=== PATIENT | female | born 1995 | race Caucasian/White ===

== ENCOUNTER → 2020-03-02 14:38 | Outpatient (CLI) | payer OTHER, MEDICAID, SELFPAY ==
[2020-03-02 15:18] LABS: Add Manual Diff / Slide Review NO; Basophils Absolute Auto 100 /uL (0-100); Basophils Percent Auto 0.8 % (0-2); Eosinophils Absolute Auto 0 /uL (0-450); Eosinophils Percent Auto 0.4 % (2-4); Hematocrit 42.7 % (36-46); Hemoglobin 14.3 g/dL (12.0-16.0); Lymphocytes Absolute Auto 2700 /uL (1100-4500); Lymphocytes Percent Auto 36.5 % (25-40); Mean Corpuscular HGB Conc 33.6 % (30-36); Mean Corpuscular Volume 92.1 fL (80-100); Monocytes Absolute Auto 700 /uL (0-900); Monocytes Percent Auto 9.8 % (3-14); Neutrophils Absolute Auto 3900 /uL (1500-7000); Neutrophils Percent Auto 52.5 % (50-75); Platelet Count 298 X10^3/uL (150-400); Red Blood Cell Count 4.63 X10^6/uL (4.0-5.2); Red Cell Distribution Width 12.3 % (11.6-14.8); White Blood Cell Count 7.4 X10^3/uL (4.5-11.0)
[2020-03-02 15:31] LABS: Alanine Aminotransferase 20 IU/L (<35); Albumin 4.6 g/dL (3.5-5.0); Albumin Globulin Ratio 1.5 (1.0-2.8); Alkaline Phosphatase 75 U/L (38-126); Aspartate Aminotransferase 29 IU/L (14-36); BUN Creatinine Ratio 22.2 (6-22); Bilirubin Total 0.4 mg/dL (0.2-1.3); Blood Urea Nitrogen 12 mg/dL (7-17); Carbon Dioxide 27 mmol/L (22-32); Chloride 104 mmol/L (98-107); Estimated Glomerular Filt Rate > 60.0 mL/min (>60); Globulin 3.1 g/dL (1.7-4.1); Glucose 83 mg/dL (70-100); HEMOLYSIS < 15 (0-50); Potassium 3.5 mmol/L (3.4-5.1); Sodium 138 mmol/L (137-145); Total Protein 7.7 g/dL (6.3-8.2)
[2020-03-02 16:36] LABS: HIV 1 & 2 Ab/Ag 4th Gen Combo NEGATIVE (NEGATIVE)
[2020-03-03 05:10] LABS: HBsAg Screen Negative (Negative); Hepatitis A Antibody IgM Negative (Negative); Hepatitis B Core Antibody IgM Negative (Negative); Hepatitis C Antibody 0.1 s/co ratio (0.0-0.9)
[2020-03-03 07:35] LABS: RPR Screen Non Reactive (Non Reactive)
[2020-03-04 07:08] LABS: Chlamydia trachomatis NAA Negative (Negative); Neisseria gonorrhoeae NAA Negative (Negative)
== END ==
PROVIDERS: PCP Registered Nurse; Referring Provider Registered Nurse; Visit Provider Registered Nurse
DX: Z11.3 Encounter for screening for infections with a predominantly sexual mode of transmission (principal); Z83.79 Family history of other diseases of the digestive system; Z79.899 Other long term (current) drug therapy
CPT/HCPCS: 36415; 80053; 80074; 85025; 86592; 87389; 87491; 87591

== ENCOUNTER → 2020-05-25 10:31 | Outpatient (ROUT) | payer OTHER, MEDICAID, SELFPAY ==
[2020-05-25 11:07] LABS: COVID19 -Nasal RAPID Negative (Negative)
== END ==
PROVIDERS: PCP Registered Nurse; Visit Provider Physician Assistant
DX: R50.9 Fever, unspecified (principal); J02.9 Acute pharyngitis, unspecified; R09.81 Nasal congestion; R43.2 Parageusia; R43.0 Anosmia
CPT/HCPCS: 87635

== ENCOUNTER → 2022-03-17 10:04 | Outpatient (CLI) | payer OTHER, SELFPAY | PROVIDERS: Visit Provider Physician Assistant Medical | DX: N39.0 Urinary tract infection, site not specified (principal) | CPT/HCPCS: 87077; 87086; 87186 ==

== ENCOUNTER → 2023-04-08 09:44 | Outpatient (CLI) | payer OTHER, MEDICAID, SELFPAY | PROVIDERS: Visit Provider Nurse Practitioner Family | DX: L08.9 Local infection of the skin and subcutaneous tissue, unspecified (principal) | CPT/HCPCS: 87070; 87075; 87077; 87147; 87205 ==

== ENCOUNTER 2024-08-13 09:22 | Observation (INO) | payer OTHER, SELFPAY ==
--- NOTE | 2024-08-13 | PATH_ITS ---
[facility] Accession Number: [id number] No. of containers..01 Tissue . 01 Material submitted: . appendix - APPENDIX . 01 Diagnosis: APPENDIX, APPENDECTOMY: Acute suppurative appendicitis and acute serositis. Negative for malignancy. [facility] 08/20/2024 1108 Local . 01 Electronically signed: . Earnestine Jackson MD, Pathologist NPI- [id number] . 01 Gross description: . Received in formalin with two identifiers and appendix, is a martinez, vermiform appendix, 5.9 cm in length by 0.6 cm in diameter with roughened serosa and adherent material consistent with exudate. The mesoappendix extends out to 2.0 cm. The margin is inked blue. The lumen is patent and averages 0.1 cm in diameter with a small amount of red-brown, semisolid material. The rosado average 0.3 cm thick with no perforation or lesions identified. Electrical Mechanic sections to include the margin, entire bisected distal tip, and cross-sections are submitted in A1. ([id number]) /MRV 08/14/2024 1300 Local . 01 Pathologist provided ICD-10: K35.80 . 01 CPT . 293711 Specimen Comment: A courtesy copy of this report has been sent to [phone] Performed at: [address] [id number] MD Oscar Vargas MD Phone: [phone]
[2024-08-13 10:12] VITALS: BP 139/89; PULSE 83; RESP 17; TEMP 37; O2SAT 100; BMI 24.2
--- NOTE | 2024-08-13 10:29 | ED.ABDPAIN ---
HPI - Abdominal Pain General Chief Complaint: Abdominal Pain Stated Complaint: [facility] said she might have appendicitis Time Seen by Provider: 08/13/24 10:29 Source: patient Mode of arrival: Family Vehicle History of Present Illness HPI narrative: Patient here for abdominal pain. Patient is seen in [facility] Emergency Department yesterday. Treating with outpatient antibiotics for appendicitis. I have reviewed medical records from [facility] yesterday. Patient left around 5:00 p.m. yesterday. Patient did receive IV antibiotics. Patient was scheduled to go surgery last night. However she got very anxious and left against medical advice. She has been NPO since yesterday. She does desire surgery now. CT scan done yesterday did show acute appendicitis. No complications. Related Data Home Medications ?Medication ?Instructions ?Recorded ?Confirmed doxycycline hyclate 100 mg tablet 100 mg PO BID 04/08/23 04/08/23 Previous Rx's ?Medication ?Instructions ?Recorded mupirocin 2 % topical ointment 1 applic topical TID #22 grams 04/08/23 Allergies Allergy/AdvReac Type Severity Reaction Status Date / Time No Known Drug Allergies Allergy Verified 08/13/24 10:12 Review of Systems Review of Systems Narrative: GENERAL: Negative chills, fatigue, malaise, fever, sweats. HEENT: Negative sinus pain, ear pain, sore throat RESPIRATORY: Negative dyspnea, cough CARDIOVASCULAR: Negative chest pain, palpitations GASTROINTESTINAL: Negative vomiting, nausea, positive abdominal pain : Negative dysuria, frequency, hematuria MUSCULOSKELETAL: Negative muscle or bony pain SKIN: Negative rash, skin lesions NEUROLOGIC: Negative weakness, numbness ROS Unobtainable: All systems reviewed & are unremarkable except as noted in HPI and below Patient History Medical History Fractures Social History household members: none Smoking Status: Never smoker Smoking Status: Never smoker Exam Narrative Exam Narrative: GENERAL: in no distress, not toxic not dyspneic HEAD: Normocephalic. EYES: Pupils equal round ENT: Mucous membranes moist. NECK: Trachea midline. CARDIOVASCULAR: Regular rate and rhythm RESPIRATORY: Clear to auscultation. Breath sounds equal bilaterally. No wheezes, rales, or rhonchi. GASTROINTESTINAL: Abdomen mild reproducible right lower quadrant tenderness positive McBurney point there is no guarding or rebound no peritoneal signs bowel sounds are present. No CVA tenderness EXTREMITIES: No gross deformities. BACK: No flank tenderness. NEURO: AOx4. Clear speech SKIN: Warm and dry PSYCH: Not anxious, is cooperative Initial Vital Signs Initial Vital Signs: Vital Signs Temperature 98.6 F 08/13/24 10:12 Pulse Rate 83 08/13/24 10:12 Respiratory Rate 17 08/13/24 10:12 Blood Pressure 139/89 08/13/24 10:12 Pulse Oximetry 100 08/13/24 10:12 Oxygen Delivery Method Room Air 08/13/24 10:12 Course Orders Ordered: ED Orders 08/13/24 10:35 Complete Blood Count AUTO DIFF Stat Comprehensive Metabolic Panel Stat Lipase Stat 08/13/24 10:42 Urinalysis and Microscopic Stat Urine Culture Stat Lactated Ringer's (Lactated Ringers) 1,000 mls @ 42 mls/hr IV CONT SAMMY Last Admin: 08/13/24 12:21 Dose: 42 mls/hr Documented By: YULIYA Ondansetron HCl (Ondansetron 4 Mg/2 Ml Inj) 4 mg IV NOW PRN PRN Reason: Nausea And Vomiting Ondansetron HCl (Ondansetron 4 Mg Odt) 4 mg PO NOW PRN PRN Reason: Nausea And Vomiting Discontinued Medications Sodium Chloride (Normal Saline 0.9%) 1,000 mls @ 1,000 mls/hr IV BOLUS ONE Stop: 08/13/24 11:33 Last Infusion: 08/13/24 11:40 Dose: Infused Documented By: Admin: 08/13/24 10:48 Dose: 1,000 mls/hr Documented By: TIA Piperacillin Sod/Tazobactam (Sod 4.5 gm/ Sodium Chloride) 100 mls @ 200 mls/hr IV NOW ONE Stop: 08/13/24 10:42 Last Infusion: 08/13/24 11:39 Dose: Infused Documented By: Admin: 08/13/24 10:49 Dose: 200 mls/hr Documented By: TIA Vital Signs Vital signs: Vital Signs - 8 hr 08/13/24 10:12 Temperature 98.6 F Pulse Rate 83 Respiratory Rate 17 Blood Pressure 139/89 Pulse Oximetry 100 Oxygen Delivery Method Room Air MDM - Abdominal Pain Lab Data 08/13/24 10:35 08/13/24 10:35 Labs: Lab Results 08/13/24 08/13/24 Range/Units 10:35 10:42 WBC 11.5 H (4.5-11.0) X10^3/uL RBC 4.43 (4.0-5.2) X10^6/uL Hgb 13.8 (12.0-16.0) g/dL Hct 40.7 (36-46) % MCV 91.9 (80-100) fL MCH 31.1 (26-34) PG MCHC 33.8 (30-36) % RDW 12.0 (11.6-14.8) % Plt Count 336 (150-400) X10^3/uL Neut % (Auto) 82.1 H (50-75) % Lymph % (Auto) 10.1 L (25-40) % [place] % (Auto) 7.4 (3-14) % Eos % (Auto) 0.1 L (2-4) % Baso % (Auto) 0.3 (0-2) % Neut # (Auto) 9400 H (8867-7106) /uL Lymph # (Auto) 1200 (2263-3397) /uL [place] # (Auto) 800 (0-900) /uL Eos # (Auto) 0 (0-450) /uL Baso # (Auto) 0 (0-100) /uL Sodium 138 (137-145) mmol/L Potassium 3.6 (3.4-5.1) mmol/L Chloride 101 (98-107) mmol/L Carbon Dioxide 25 (22-32) mmol/L BUN 10 (7-17) mg/dL Creatinine 0.74 (0.52-1.04) mg/dL Estimated GFR > 60 (>60) mL/min BUN/Creatinine Ratio 13.5 (6-22) Glucose 92 (70-99) mg/dL Calcium 9.2 (8.4-10.2) mg/dL Total Bilirubin 1.2 (0.2-1.3) mg/dL AST 22 (14-36) IU/L ALT 16 (<35) IU/L Alkaline Phosphatase 69 (38-126) U/L Total Protein 7.9 (6.3-8.2) g/dL Albumin 4.8 (3.5-5.0) g/dL Globulin 3.1 (1.7-4.1) g/dL Albumin/Globulin Ratio 1.5 (1.0-2.8) Lipase 21 L (23-300) U/L Urine Color Yellow Urine Appearance Clear Urine pH 5.5 (4.5-8.0) Ur Specific [place] >=1.030 H (1.000-1.035) Urine Protein 1+ H (Negative) Urine Glucose (UA) Negative (Negative) g/dL Urine Ketones 3+ H (NEGATIVE) Urine Occult Blood Negative (Negative) Urine Nitrate Negative (Negative) Urine Bilirubin Negative (NEGATIVE) Urine Urobilinogen 1.0 (0.2) E.U./dL Ur Leukocyte Esterase Negative (NEGATIVE) Urine RBC 0-1/hpf (0-5/HPF) Urine WBC 1-5/hpf (0-5/HPF) Ur Squamous Epith Cells 10-30 /hpf H (0-5/HPF) Urine Bacteria Few (2-10) H (None) Urine Mucus 2+ H (Negative) Ur Culture Indicated? Specimen cultured Vol Urine Centrifuged 10ml (spun) Point of care testing: Point of Care Testing Test Results Negative Urine Dip Bedside Urine Glucose Negative Bedside Urine Bilirubin - Negative Bedside Urine Ketone +++ 80 Urine Specific [place] 1.030 Bedside Urine Occult Blood - Negative Bedside Urine pH 6.0 Bedside Urine Protein + 30 Bedside Urine Urobilinogen +/- 1mg Bedside Urine Nitrite - Negative Bedside Urine Leukocytes - Negative Esterase [facility] Narrative Medical decision making narrative: Patient here for abdominal pain. Patient is seen in [facility] Emergency Department yesterday. Treating with outpatient antibiotics for appendicitis. I have reviewed medical records from [facility] yesterday. Patient left around 5:00 p.m. yesterday. Patient did receive IV antibiotics. Patient was scheduled to go surgery last night. However she got very anxious and left against medical advice. She has been NPO since yesterday. She does desire surgery now. CT scan done yesterday did show acute appendicitis. No complications. After history and exam, exam is reassuring. NPO, CBC CMP general surgery consult for appendicitis/appendectomy MDM Medical records reviewed: ER records CT report laboratory studies from ER visit [facility] emergency department yesterday Differential considered: Includes but not limited to acute appendicitis Lab Test results independently reviewed as above. Pertinent findings: Consultations: 10:[address] Jacobs, general surgery, keep patient NPO. He will see patient here in the emergency department. Re-evaluations: 10:40 a.m.. Spoke with patient. She agrees for surgery. She did not get the Augmentin feel, she only had the IV antibiotics yesterday. Pain is controlled. She has been NPO since yesterday. Discussion: Appropriate for admission. Patient will need appendectomy. No repeat CT indicated at this time. Diagnosis: Acute appendicitis Discharge Plan Departure Patient Disposition: Admitted as Observation Clinical Impression: Acute appendicitis Qualifiers: Acute appendicitis type: with localized peritonitis Appendicitis gangrene presence: without gangrene Appendicitis perforation presence: without perforation Appendicitis abscess presence: without abscess Qualified Code(s): K35.30 - Acute appendicitis with localized peritonitis, without perforation or gangrene Admit Date/Time: 08/13/24 11:26 Admit Provider: Lars Jacobs
[2024-08-13] MEDS: SODIUM CHLORIDE 0.9% 1,000 ML 1000 ML IV (10:48)
[2024-08-13] MEDS: PIPERACILLIN/TAZO 4.5 GM in SODIUM CHLORIDE 0.9% 100 ML IV (10:49)
[2024-08-13 10:54] LABS: Add Manual Diff / Slide Review NO; Basophils Absolute Auto 0 /uL (0-100); Basophils Percent Auto 0.3 % (0-2); Eosinophils Absolute Auto 0 /uL (0-450); Eosinophils Percent Auto 0.1 % (2-4); Hematocrit 40.7 % (36-46); Hemoglobin 13.8 g/dL (12.0-16.0); Lymphocytes Absolute Auto 1200 /uL (1100-4500); Lymphocytes Percent Auto 10.1 % (25-40); Mean Corpuscular HGB Conc 33.8 % (30-36); Mean Corpuscular Hemoglobin 31.1 PG (26-34); Mean Corpuscular Volume 91.9 fL (80-100); Monocytes Absolute Auto 800 /uL (0-900); Monocytes Percent Auto 7.4 % (3-14); Neutrophils Absolute Auto 9400 /uL (1500-7000); Neutrophils Percent Auto 82.1 % (50-75); Platelet Count 336 X10^3/uL (150-400); Red Blood Cell Count 4.43 X10^6/uL (4.0-5.2); White Blood Cell Count 11.5 X10^3/uL (4.5-11.0)
[2024-08-13 11:01] LABS: Appearance Urine UA CLEAR; Bilirubin Urine UA NEGATIVE (NEGATIVE); Color Urine UA YELLOW; Glucose Urine UA NEGATIVE (Negative); Ketones Urine UA 3+ (NEGATIVE); Leukocyte Esterase Urine UA NEGATIVE (NEGATIVE); Nitrite Urine UA NEGATIVE (Negative); Occult Blood Urine UA NEGATIVE (Negative); Protein Urine UA 1+ (Negative); Specific Gravity Urine UA >=1.030 (1.000-1.035)
[2024-08-13 11:04] LABS: pH Urine UA 5.5 (4.5-8.0)
[2024-08-13 11:13] LABS: Bacteria Urine Few (2-10); Culture Indicated Urine Specimen Cultured; Mucus Urine 2+ (Negative); RBC Urine 0-1/HPF (0-5/HPF); Squamous Epithelial Cell Urine 10-30 /HPF (0-5/HPF); Urine Volume 10mL (spun); WBC Urine 1-5/HPF (0-5/HPF)
[2024-08-13 11:14] LABS: Alanine Aminotransferase 16 IU/L (<35); Albumin 4.8 g/dL (3.5-5.0); Albumin Globulin Ratio 1.5 (1.0-2.8); Alkaline Phosphatase 69 U/L (38-126); Aspartate Aminotransferase 22 IU/L (14-36); BUN Creatinine Ratio 13.5 (6-22); Bilirubin Total 1.2 mg/dL (0.2-1.3); Blood Urea Nitrogen 10 mg/dL (7-17); Calcium 9.2 mg/dL (8.4-10.2); Carbon Dioxide 25 mmol/L (22-32); Chloride 101 mmol/L (98-107); Estimated Glomerular Filt Rate > 60 mL/min (>60); Globulin 3.1 g/dL (1.7-4.1); Glucose 92 mg/dL (70-99); HEMOLYSIS < 15 (0-50); Lipase 21 U/L (23-300); Potassium 3.6 mmol/L (3.4-5.1); Sodium 138 mmol/L (137-145); Total Protein 7.9 g/dL (6.3-8.2)
--- NOTE | 2024-08-13 11:48 | PM.HP.IH.1 ---
History of Present Illness History of Present Illness Date Patient Seen: 08/13/24 Time Patient Seen: 11:48 Chief complaint: [facility] ER said she might have appendicitis Narrative: Isabel is a 29-year-old woman who presented to our ER today with 2 days of right lower quadrant abdominal pain. The pain initially started out as periumbilical and then migrated to the right lower quadrant. She was at [facility] ER yesterday and had a CT scan which showed acute uncomplicated appendicitis. She left there and came here it was morning. [facility] Medical History Fractures Social History Smoking Status: Never smoker Meds Home Medications and Allergies Home Medications ?Medication ?Instructions ?Recorded ?Confirmed ?Type doxycycline hyclate 100 mg tablet 100 mg PO BID 04/08/23 04/08/23 History mupirocin 2 % topical ointment 1 applic topical TID #22 grams 04/08/23 04/08/23 Rx Allergies Allergy/AdvReac Type Severity Reaction Status Date / Time No Known Drug Allergies Allergy Verified 08/13/24 10:12 Exam Vital Signs (past 8 hours): - 08/13/24 10:12 Temperature 98.6 F Pulse Rate 83 Respiratory Rate 17 Blood Pressure 139/89 Pulse Oximetry 100 Oxygen Delivery Method Room Air Oxygen Delivery Method Room Air Narrative Exam Narrative: Abdomen is soft, tender to palpation in right lower quadrant without mali peritonitis Objective Labs 08/13/24 10:35 08/13/24 10:35 Labs: Laboratory Results - last 24 hr 08/13/24 08/13/24 10:35 10:42 WBC 11.5 H RBC 4.43 Hgb 13.8 Hct 40.7 MCV 91.9 MCH 31.1 MCHC 33.8 RDW 12.0 Plt Count 336 Neut % (Auto) 82.1 H Lymph % (Auto) 10.1 L [place] % (Auto) 7.4 Eos % (Auto) 0.1 L Baso % (Auto) 0.3 Neut # (Auto) 9400 H Lymph # (Auto) 1200 [place] # (Auto) 800 Eos # (Auto) 0 Baso # (Auto) 0 Sodium 138 Potassium 3.6 Chloride 101 Carbon Dioxide 25 BUN 10 Creatinine 0.74 Estimated GFR > 60 BUN/Creatinine Ratio 13.5 Glucose 92 Calcium 9.2 Total Bilirubin 1.2 AST 22 ALT 16 Alkaline Phosphatase 69 Total Protein 7.9 Albumin 4.8 Globulin 3.1 Albumin/Globulin Ratio 1.5 Lipase 21 L Urine Color Yellow Urine Appearance Clear Urine pH 5.5 Ur Specific [place] >=1.030 H Urine Protein 1+ H Urine Glucose (UA) Negative Urine Ketones 3+ H Urine Occult Blood Negative Urine Nitrate Negative Urine Bilirubin Negative Urine Urobilinogen 1.0 Ur Leukocyte Esterase Negative Urine RBC 0-1/hpf Urine WBC 1-5/hpf Ur Squamous Epith Cells 10-30 /hpf H Urine Bacteria Few (2-10) H Urine Mucus 2+ H Ur Culture Indicated? Specimen cultured Vol Urine Centrifuged 10ml (spun) Assessment & Plan Assessment and plan (1) Acute appendicitis: Qualifiers: Acute appendicitis type: with localized peritonitis Appendicitis gangrene presence: without gangrene Appendicitis perforation presence: without perforation Appendicitis abscess presence: without abscess Qualified Code(s): K35.30 - Acute appendicitis with localized peritonitis, without perforation or gangrene Status: Acute Plan We discussed antibiotic therapy alone or laparoscopic appendectomy. She would like to proceed with laparoscopic appendectomy. Time-Based Coding :: [TOTAL MINUTES] spent with patient and on the chart (including review of chart, obtaining history, exam, reviewing outside data, placing orders, documenting exam and treatment plan, and counseling patient) on [DATE]. PROFEE Nutrition Intern Document charge(s): No
[2024-08-13 12:09] VITALS: BP 143/95; PULSE 109; RESP 17; TEMP 37.1; O2SAT 98; BMI 26.3
[2024-08-13] MEDS: LACTATED RINGERS 1,000 ML 42 ML IV (12:21)
--- NOTE | 2024-08-13 13:30 | SUR.OPER ---
Supine on padded OR bed, head on pillow, left arm tucked with gel pad and draw sheet. Right arm secured on padded arm boards at <90 degrees abduction, legs uncrossed, safety belt at thigh, tape over blanket over lower legs.
[2024-08-13] MEDS: BUPIVACAINE 0.5% W/ EPI (PF) 30 ML VIAL INJ (13:45)
--- NOTE | 2024-08-13 14:01 | PM.OP.1 ---
Operative Date/Time/Diagnoses Date of procedure: 08/13/24 Time of procedure: 14:01 Pre-op diagnosis: Acute appendicitis Post-op diagnosis: same Procedure & Clinicians Procedure: Laparoscopic appendectomy Same procedure(s) as scheduled: Yes Surgeon: Lars Jacobs Click Yes if Unassisted: Yes Anesthesia Type: General Operative Notes Findings: Acute, unperforated appendicitis Applied: none Estimated Blood Loss (mL): 5 Procedure in detail: The patient had received Zosyn in the emergency room. The patient was brought to the operating room, placed on the table in the supine position and general endotracheal anesthesia was induced. A time-out was performed. The abdomen was prepped and draped in the usual fashion. After injection of local anesthetic a 1 cm infraumbilical incision was created with a 15 blade scalpel. The umbilical stalk was grasped with a Cristiana clamp to elevate the abdominal wall. The infraumbilical midline fascia was cleared over 1 cm and the fascia was scored with cautery. The peritoneum was pierced with a Peon clamp. The Yaima port was placed and the abdomen was insufflated to 15 mmHg. The camera was inserted and there was no evidence of any injury from the entry. Next, 5 mm ports were placed in the suprapubic and left lower quadrant positions under direct vision. The patient was placed in Trendelenburg with the right-side elevated. The terminal ileum was swept away from the cecum and the appendix was visualized. The appendix was inflamed and distended but not perforated and there was no evidence of gangrene. The mesoappendix was divided with the Power-seal. Two PDS Endoloops were placed at the base and a 3rd endoloop was placed about a centimeter distally and the appendix was divided sharply. The specimen was placed in a Endo-Catch bag. A small amount of fluid with suctioned from the base of the appendix and pelvis. The table was flattened and the terminal ileum and omentum were allowed to slide in over the appendiceal stump. Finally, the 5 mm ports were removed under direct vision. The pneumoperitoneum was released and the Yaima port was removed followed by the Endo-Catch bag. Additional local was injected into the fascia and the infraumbilical incision was closed with 2 interrupted 2-0 Vicryl sutures. The skin incisions were closed with 4 Monocryl. Steri-Strips were applied followed by Band-Aids. EBL: 5 mL Specimen: Appendix Complications: none Post-operative Condition: stable Disposition: PACU
[2024-08-13 14:08] VITALS: BP 134/81; PULSE 117; RESP 16; TEMP 36.2; O2SAT 99
[2024-08-13 14:12] VITALS: BP 126/87; PULSE 115; RESP 16; TEMP 36.4; O2SAT 100
[2024-08-13] MEDS: ACETAMINOPHEN IV 1,000 MG/100 ML VIAL 400 MG IV (14:14)
[2024-08-13] MEDS: ONDANSETRON 4 MG/2 ML INJ IV (14:16)
[2024-08-13 14:17] VITALS: BP 130/90; PULSE 102; RESP 15; TEMP 36.4; O2SAT 100
[2024-08-13 14:22] VITALS: BP 129/83; PULSE 99; RESP 15; TEMP 36.4; O2SAT 100
== END 2024-08-13 14:37 | disposition home or self-care (01) ==
LOC: ED 10:41 → AC 11:27
PROVIDERS: Admitting Provider Surgery; Emergency Provider Emergency Medicine; PCP Family Medicine; Referring Provider Emergency Medicine; Visit Provider Surgery
PROC: 0DTJ4ZZ Resection of Appendix, Percutaneous Endoscopic Approach (ICD-10-PCS; CPT 44970; principal; 2024-08-13 13:00)
DX: K35.80 Unspecified acute appendicitis (principal)
CPT/HCPCS: 44970; 36415; 80053; 81001; 81003; 81025; 83690; 85025; 87086; 96365; 99284; G0378; J0131; J0330; J1100; J2405; J2543; J2704; J3010; J3490